=== PATIENT | female | born 1955 | race Caucasian/White ===

== ENCOUNTER 2017-05-26 17:14 | Emergency (ER) | payer BC ==
[~2017-05-26] VITALS: Ht 157.5 cm; Wt 92.7 kg
[~2017-05-26 17:14] MED LIST: ASPIR 8181 M1 PO; BUSPAR7.5 MG PO; CIPRO500 MG PO; FLAGYL500 MG PO; GAS RELIEF125 MG PO; GAS-X125 M1 PO; NEXIUM40 MG PO; NORCO 5/3251 TABLET PO; OMEGA III EPA1000 MG PO; PROBIOTIC1 EAC1 PO; PROMETHAZINE HC25 M1 PO; VITAMIN D1000 UNIT PO; ZINC30 MG PO
[2017-05-26 18:05] LABS: HEMATOCRIT 42.8 % (36.0-46.0); MCH 28.7 PG (29.0-34.0); MCHC 33.2 G/DL (30.0-36.0); MCV 86.5 FL (83-99); MEAN PLAT.VOLUME 10.3 uM^3 (9.5-12.4); PLATELET COUNT 339 K/uL (156-360); RBC DIS.WIDTH-CV 13.5 % (11.8-14.6); RBC DIS.WIDTH-SD 42.4 % (39-53); RED BLOOD COUNT 4.95 M/uL (3.80-5.20); WHITE BLOOD COUNT 10.6 K/uL (4.1-10.2)
[2017-05-26 18:16] LABS: CHLORIDE 102 mEq/L (99-109); POTASSIUM 3.6 mEq/L (3.7-5.4); SODIUM 142 mEq/L (136-147)
[2017-05-26 18:17] LABS: GLUCOSE 96 mg/dL (70-99)
[2017-05-26 18:19] LABS: ANION GAP 15 MEQ/L (2-14)
[2017-05-26 18:21] LABS: GFR ESTIMATE (CALCULATED) > 59 mL/min/
[2017-05-26 18:22] LABS: UREA NITROGEN (BUN) 4 mg/dL (9-23)
[2017-05-26 18:30] LABS: TROP-I INTERPRETATION NEGATIVE; TROPONIN-I < 0.01 ng/mL (0.0-0.30)
[2017-05-26] MEDS ORDERED: K-DUR20 MEQ PO (19:48)
[2017-05-26] MEDS ORDERED: ATIVAN1 MG PO (19:48)
[2017-05-26] MEDS ORDERED: HYDROCHLOROTHIA25 MG PO (19:48)
[2017-05-26 19:53] VITALS: BP 164/104
== END 2017-05-26 20:19 | disposition home or self-care (01) ==
LOC: EME 17:14
PROVIDERS: Emergency Medicine
DX: I10 Essential (primary) hypertension (principal); F41.9 Anxiety disorder, unspecified; F43.9 Reaction to severe stress, unspecified; C14.0 Malignant neoplasm of pharynx, unspecified; K21.9 Gastro-esophageal reflux disease without esophagitis; Z90.49 Acquired absence of other specified parts of digestive tract; F17.200 Nicotine dependence, unspecified, uncomplicated
CPT/HCPCS: 80048; 84484; 85027; 93005; 99281; 99284

== ENCOUNTER 2017-05-29 15:04 | Emergency (ER) | payer BC ==
[~2017-05-29] VITALS: Ht 158.8 cm; Wt 90.4 kg
[~2017-05-29 15:04] MED LIST changes: +ATIVAN1 MG PO; +HYDROCHLOROTHIA25 MG PO; +K-DUR20 MEQ PO
[2017-05-29 16:32] LABS: HEMATOCRIT 44.7 % (36.0-46.0); MCH 28.9 PG (29.0-34.0); MCHC 33.8 G/DL (30.0-36.0); MCV 85.5 FL (83-99); MEAN PLAT.VOLUME 10.8 uM^3 (9.5-12.4); PLATELET COUNT 336 K/uL (156-360); RBC DIS.WIDTH-CV 13.3 % (11.8-14.6); RBC DIS.WIDTH-SD 41.5 % (39-53); RED BLOOD COUNT 5.23 M/uL (3.80-5.20); WHITE BLOOD COUNT 11.5 K/uL (4.1-10.2)
[2017-05-29 17:25] LABS: ADD MIUA? YES; BILIRUBIN NEGATIVE; BLOOD NEGATIVE; COLOR YELLOW ((YELLOW)); GLUCOSE (STRIP) NEGATIVE; KETONES NEGATIVE; LEUKOCYTES NEGATIVE; NITRITE NEGATIVE; PROTEIN (STRIP) NEGATIVE; SPECIFIC GRAVITY 1.009 (1.000-1.030); UROBILINOGEN 0.2 MG/DL (0.2-1.0)
[2017-05-29 17:31] LABS: BACTERIA RARE /HPF; EPITHELIAL CELLS 2+ /HPF; MUCUS TRACE /LPF; RED BLOOD CELLS 0-5 /HPF (0-5); UCUL ADDED? NO; WHITE BLOOD CELLS 0-5 /HPF (0-5)
[2017-05-29 17:39] LABS: CHLORIDE 99 mEq/L (99-109); POTASSIUM 3.5 mEq/L (3.7-5.4); SODIUM 138 mEq/L (136-147)
[2017-05-29 17:40] LABS: GLUCOSE 102 mg/dL (70-99)
[2017-05-29 17:42] LABS: ANION GAP 16 MEQ/L (2-14)
[2017-05-29 17:44] LABS: GFR ESTIMATE (CALCULATED) > 59 mL/min/
[2017-05-29 17:45] LABS: UREA NITROGEN (BUN) 7 mg/dL (9-23)
[2017-05-29] MEDS ORDERED: ATIVAN1 MG PO (18:28)
[2017-05-29 18:57] VITALS: BP 143/97
== END 2017-05-29 19:00 | disposition home or self-care (01) ==
LOC: EME 15:04
PROVIDERS: Emergency Medicine
DX: I10 Essential (primary) hypertension (principal); F41.9 Anxiety disorder, unspecified; R42 Dizziness and giddiness; C14.0 Malignant neoplasm of pharynx, unspecified; I45.10 Unspecified right bundle-branch block; F17.200 Nicotine dependence, unspecified, uncomplicated
CPT/HCPCS: 70450; 71020; 80048; 81003; 85027; 93005; 99281; 99285; J2060

== ENCOUNTER 2017-06-01 13:35 | Emergency (ER) | payer BC ==
[~2017-06-01] VITALS: Ht 157.5 cm; Wt 90.0 kg
[~2017-06-01 13:35] MED LIST changes: -VITAMIN D1000 UNIT PO; +VITAMIN D32000 UNI1 PO
[2017-06-01 14:48] LABS: BASOPHIL COUNT 0.1 K/uL (0-0.1); EOSINOPHIL (%) 0.3 % (0-5); HEMATOCRIT 43.7 % (36.0-46.0); IMMATURE GRANULOCYTE (%) 0.4 % (0.0-0.7); INSTRUMENT ABS NEUTROPHIL CT 7.5 K/uL; LYMPHOCYTE COUNT 2.4 K/uL (1.0-2.8); MCH 28.8 PG (29.0-34.0); MCHC 34.1 G/DL (30.0-36.0); MCV 84.5 FL (83-99); MEAN PLAT.VOLUME 10.3 uM^3 (9.5-12.4); MONOCYTE COUNT 0.9 K/uL (0-0.8); NEUTROPHIL (%) 68.7 % (45-76); NEUTROPHIL COUNT 7.5 K/uL (1.8-6.4); PLATELET COUNT 368 K/uL (156-360); RBC DIS.WIDTH-CV 13.1 % (11.8-14.6); RBC DIS.WIDTH-SD 40.6 % (39-53); RED BLOOD COUNT 5.17 M/uL (3.80-5.20); WHITE BLOOD COUNT 10.9 K/uL (4.1-10.2)
[2017-06-01 14:55] LABS: CHLORIDE 97 mEq/L (99-109); POTASSIUM 3.3 mEq/L (3.7-5.4); SODIUM 136 mEq/L (136-147)
[2017-06-01 14:56] LABS: GLUCOSE 98 mg/dL (70-99)
[2017-06-01 14:58] LABS: ANION GAP 13 MEQ/L (2-14)
[2017-06-01 15:00] LABS: GFR ESTIMATE (CALCULATED) 53 mL/min/
[2017-06-01 15:01] LABS: UREA NITROGEN (BUN) 11 mg/dL (9-23)
[2017-06-01 15:07] LABS: TROP-I INTERPRETATION NEGATIVE; TROPONIN-I < 0.01 ng/mL (0.0-0.30)
[2017-06-01 18:11] VITALS: BP 105/65
[2017-06-13] MEDS ORDERED: ATIVAN1 MG PO (12:59)
[2017-06-13] MEDS ORDERED: ASPIRIN81 M2 PO (13:01)
[2017-06-29] MEDS ORDERED: OXAYDO5 MG PO (08:48)
[2017-06-29] MEDS ORDERED: DEXAMETHASONE4 MG PO (08:51)
[2017-06-29] MEDS ORDERED: EFFEXOR XR75 MG PO (08:51)
[2017-06-29] MEDS ORDERED: ONDANSETRON HCL8 MG PO (08:51)
[2017-07-06] MEDS ORDERED: COLACE100 MG PO (08:40)
[2017-07-06] MEDS ORDERED: COMPAZINE10 MG PO (08:41)
[2017-07-06] MEDS ORDERED: PAIN RELIEVER500 MG PO (08:42)
[2017-07-06] MEDS ORDERED: TRANSDERM-SCOP1 EACH TD (08:42)
[2017-07-27] MEDS ORDERED: POTASSIUM CHLO10 ME3 PO (09:51)
== END 2017-06-01 18:13 | disposition home or self-care (01) ==
LOC: EME 13:35 → RME 13:35
PROVIDERS: Physician Assistant
DX: R55 Syncope and collapse (principal)
CPT/HCPCS: 70450; 80048; 84484; 85025; 93005; 99281; 99285; J1885; J7030

== ENCOUNTER 2017-06-15 11:13 | Day surgery (SDC) | payer BC ==
[~2017-06-15] VITALS: Ht 157.5 cm; Wt 90.7 kg
[~2017-06-15 11:13] MED LIST changes: +ASPIRIN81 M2 PO
[2017-06-15] MEDS ORDERED: GAS-X125 MG PO (11:52)
[2017-06-15 12:00] VITALS: BP 185/89
[2017-06-15] MEDS ORDERED: NORCO 5/3251 TABLET PO (14:34)
[2017-06-15 16:34] VITALS: BP 139/70
[2017-06-15 17:40] VITALS: BP 155/72
== END 2017-06-15 18:05 | disposition home or self-care (01) ==
LOC: SDC 11:13
DX: C09.9 Malignant neoplasm of tonsil, unspecified (principal); I87.8 Other specified disorders of veins; I10 Essential (primary) hypertension; K21.0 Gastro-esophageal reflux disease with esophagitis; Z88.2 Allergy status to sulfonamides; F17.210 Nicotine dependence, cigarettes, uncomplicated; Z82.61 Family history of arthritis; Z80.0 Family history of malignant neoplasm of digestive organs; Z81.8 Family history of other mental and behavioral disorders; Z82.49 Family history of ischemic heart disease and other diseases of the circulatory system; E66.9 Obesity, unspecified; Z68.36 Body mass index [BMI] 36.0-36.9, adult
CPT/HCPCS: 71010; C1751; J0690; J1170; J1885; J2250; J2405; J2765; J3010

== ENCOUNTER 2017-07-22 10:46 | Emergency (ER) | payer BC ==
[~2017-07-22] VITALS: Ht 157.5 cm; Wt 93.8 kg
[~2017-07-22 10:46] MED LIST changes: +COLACE100 MG PO; +COMPAZINE10 MG PO; +DEXAMETHASONE4 MG PO; +EFFEXOR XR75 MG PO; +GAS-X125 MG PO; +ONDANSETRON HCL8 MG PO; +OXAYDO5 MG PO; +PAIN RELIEVER500 MG PO; +TRANSDERM-SCOP1 EACH TD
[2017-07-22 12:01] LABS: EOSINOPHIL (%) 0 % (0-5); HEMATOCRIT 29.5 % (36.0-46.0); IMMATURE GRANULOCYTE (%) 0.8 % (0.0-0.7); IMMATURE GRANULOCYTE COUNT 0.1 K/uL; LYMPHOCYTE COUNT 0.2 K/uL (1.0-2.8); MCH 29.4 PG (29.0-34.0); MCHC 34.2 G/DL (30.0-36.0); MEAN PLAT.VOLUME 10.2 uM^3 (9.5-12.4); MONOCYTE (%) 4.1 % (3-12); MONOCYTE COUNT 0.3 K/uL (0-0.8); NEUTROPHIL (%) 91.4 % (45-76); PLATELET COUNT 182 K/uL (156-360); RBC DIS.WIDTH-CV 13.2 % (11.8-14.6); RBC DIS.WIDTH-SD 40.3 % (39-53); RED BLOOD COUNT 3.43 M/uL (3.80-5.20); WHITE BLOOD COUNT 6.6 K/uL (4.1-10.2)
[2017-07-22 12:23] LABS: CHLORIDE 99 mEq/L (99-109); POTASSIUM 4.3 mEq/L (3.7-5.4); SODIUM 135 mEq/L (136-147)
[2017-07-22 12:25] LABS: GLUCOSE 137 mg/dL (70-99)
[2017-07-22 12:27] LABS: ANION GAP 11 MEQ/L (2-14)
[2017-07-22 12:29] LABS: GFR ESTIMATE (CALCULATED) > 59 mL/min/; INTER. NORMALIZED RATIO 1.2; PROTHROMBIN TIME 13.5 SEC (10.2-12.9)
[2017-07-22 12:30] LABS: UREA NITROGEN (BUN) 15 mg/dL (9-23)
[2017-07-22 12:31] LABS: PTT 28.3 SEC (25-37)
[2017-07-22 14:38] VITALS: BP 153/80
== END 2017-07-22 14:39 | disposition home or self-care (01) ==
LOC: EME 10:46
PROVIDERS: Nurse Practitioner Family
DX: R60.0 Localized edema (principal); C09.9 Malignant neoplasm of tonsil, unspecified; T45.1X5A Adverse effect of antineoplastic and immunosuppressive drugs, initial encounter; D64.81 Anemia due to antineoplastic chemotherapy; I10 Essential (primary) hypertension; K21.9 Gastro-esophageal reflux disease without esophagitis; F32.9 Major depressive disorder, single episode, unspecified; F41.9 Anxiety disorder, unspecified; Z93.1 Gastrostomy status; F17.200 Nicotine dependence, unspecified, uncomplicated
CPT/HCPCS: 80048; 85025; 85610; 85730; 93005; 93971; 99281; 99283

== ENCOUNTER 2017-08-02 16:10 | Observation (INO) | payer BC ==
[~2017-08-02] VITALS: Ht 157.5 cm; Wt 91.5 kg
[~2017-08-02 16:10] MED LIST changes: -ONDANSETRON HCL8 MG PO; +ONDANSETRON ODT4 MG PO; +POTASSIUM CHLO10 ME3 PO
[2017-08-02 17:22] LABS: HEMATOCRIT 24.1 % (36.0-46.0); MCH 30.3 PG (29.0-34.0); MCHC 36.1 G/DL (30.0-36.0); RBC DIS.WIDTH-CV 13.3 % (11.8-14.6); RED BLOOD COUNT 2.87 M/uL (3.80-5.20); WHITE BLOOD COUNT 2.4 K/uL (4.1-10.2)
[2017-08-02 17:29] LABS: CHLORIDE 91 mEq/L (99-109); SODIUM 130 mEq/L (136-147)
[2017-08-02 17:32] LABS: GLUCOSE 102 mg/dL (70-99)
[2017-08-02 17:33] LABS: ANION GAP 13 MEQ/L (2-14)
[2017-08-02 17:34] LABS: TOTAL BILIRUBIN 0.7 mg/dL (0.0-1.0)
[2017-08-02 17:35] LABS: ALKALINE PHOSPHATASE 51 IU/L (3-129)
[2017-08-02 17:36] LABS: GFR ESTIMATE (CALCULATED) > 59 mL/min/
[2017-08-02 17:37] LABS: DIRECT BILIRUBIN 0.4 mg/dL (0.0-0.3); UREA NITROGEN (BUN) 8 mg/dL (9-23)
[2017-08-02 17:39] LABS: LIPASE 17 U/L (1.0-51.0)
[2017-08-02 18:19] LABS: EOSINOPHIL (%) 0.4 % (0-5); HEMATOLOGY COMMENT 1 SN; IMMATURE GRANULOCYTE (%) 0.4 % (0.0-0.7); INSTRUMENT ABS NEUTROPHIL CT 1.7 K/uL; LYMPHOCYTE COUNT 0.3 K/uL (1.0-2.8); MEAN PLAT.VOLUME 8.9 uM^3 (9.5-12.4); MONOCYTE (%) 11.9 % (3-12); MONOCYTE COUNT 0.3 K/uL (0-0.8); NEUTROPHIL (%) 73.7 % (45-76); NEUTROPHIL COUNT 1.7 K/uL (1.8-6.4); PLAT.SUFFICIENCY DECREASED; PLATELET COUNT 107 K/uL (156-360)
[2017-08-02] MEDS ORDERED: MAG-OXIDE400 MG PO (23:57)
[2017-08-03 00:15] VITALS: BP 173/87
[2017-08-03 05:28] LABS: HEMATOCRIT 25.3 % (36.0-46.0); MCH 30.5 PG (29.0-34.0); MCHC 35.2 G/DL (30.0-36.0); MCV 86.6 FL (83-99); MEAN PLAT.VOLUME 9.4 uM^3 (9.5-12.4); PLATELET COUNT 116 K/uL (156-360); RBC DIS.WIDTH-CV 14.1 % (11.8-14.6); RBC DIS.WIDTH-SD 42.4 % (39-53); RED BLOOD COUNT 2.92 M/uL (3.80-5.20); WHITE BLOOD COUNT 2.6 K/uL (4.1-10.2)
[2017-08-03 08:58] VITALS: BP 149/74
[2017-08-03 09:33] LABS: ALKALINE PHOSPHATASE 50 IU/L (3-129); ANION GAP 8 MEQ/L (2-14); GFR ESTIMATE (CALCULATED) > 59 mL/min/; GLUCOSE 98 mg/dL (70-99); SAMPLE HEMOLYSIS CHECK 0; SAMPLE ICTERIC CHECK 0; SAMPLE LIPEMIA CHECK 0; SODIUM 134 MEQ/L (136-147); UREA NITROGEN (BUN) 7 mg/dL (9-23)
[2017-08-03 09:36] LABS: CHLORIDE 99 MEQ/L (99-109); MAGNESIUM 1.4 mg/dl (1.3-2.7); POTASSIUM 3.9 MEQ/L (3.7-5.4); TOTAL BILIRUBIN 0.5 MG/DL (0.0-1.0)
[2017-08-03 12:05] VITALS: BP 166/86
[2017-08-03 16:00] VITALS: BP 174/89
== END 2017-08-03 18:20 | disposition home or self-care (01) ==
LOC: EME 16:10 → EDOF 22:33 → 5WEST 22:33 → ENRESERV 22:51 → EDOF 08-03 00:06 → 5WEST 08-03 00:06
PROVIDERS: Emergency Medicine; Hospitalist; Physician Assistant Medical
DX: R11.2 Nausea with vomiting, unspecified (principal); E87.6 Hypokalemia; E83.42 Hypomagnesemia; E87.1 Hypo-osmolality and hyponatremia; E87.8 Other disorders of electrolyte and fluid balance, not elsewhere classified; C09.9 Malignant neoplasm of tonsil, unspecified; R19.7 Diarrhea, unspecified; R10.9 Unspecified abdominal pain; R63.4 Abnormal weight loss; Z92.21 Personal history of antineoplastic chemotherapy; Z92.3 Personal history of irradiation; I10 Essential (primary) hypertension; I45.10 Unspecified right bundle-branch block; D64.9 Anemia, unspecified; K21.9 Gastro-esophageal reflux disease without esophagitis; F41.9 Anxiety disorder, unspecified; Z86.19 Personal history of other infectious and parasitic diseases; M19.90 Unspecified osteoarthritis, unspecified site; G89.29 Other chronic pain; M54.9 Dorsalgia, unspecified; Z86.010 Personal history of colon polyps; Z93.1 Gastrostomy status; Z90.49 Acquired absence of other specified parts of digestive tract; Z90.710 Acquired absence of both cervix and uterus; F17.200 Nicotine dependence, unspecified, uncomplicated; Z80.0 Family history of malignant neoplasm of digestive organs; Z82.61 Family history of arthritis; Z82.49 Family history of ischemic heart disease and other diseases of the circulatory system; Z82.0 Family history of epilepsy and other diseases of the nervous system; Z66 Do not resuscitate
CPT/HCPCS: 71010; 71275; 80048; 80053; 80076; 83690; 83735; 84100; 85025 91; 85027; 87493; 93005; 99281; 99285; C9113; G0378; J2060; J2405; J3475; J3480; J7030

== ENCOUNTER 2017-08-06 07:21 | Inpatient (IN) | payer BC ==
[~2017-08-06] VITALS: Ht 158.8 cm; Wt 89.4 kg
[~2017-08-06 07:21] MED LIST changes: +MAG-OXIDE400 MG PO
[2017-08-06 08:24] LABS: INTER. NORMALIZED RATIO 1.3; PROTHROMBIN TIME 14.6 SEC (10.2-12.9)
[2017-08-06 08:27] LABS: MCHC 35.2 G/DL (30.0-36.0); MCV 85.2 FL (83-99); MEAN PLAT.VOLUME 8.9 uM^3 (9.5-12.4); PLATELET COUNT 120 K/uL (156-360); RBC DIS.WIDTH-CV 13.5 % (11.8-14.6); RBC DIS.WIDTH-SD 40.8 % (39-53)
[2017-08-06 08:29] LABS: CHLORIDE 92 mEq/L (99-109); SODIUM 133 mEq/L (136-147)
[2017-08-06 08:31] LABS: GLUCOSE 115 mg/dL (70-99); MAGNESIUM 0.8 mg/dL (1.3-2.7)
[2017-08-06 08:32] LABS: ANION GAP 9 MEQ/L (2-14)
[2017-08-06 08:35] LABS: GFR ESTIMATE (CALCULATED) > 59 mL/min/
[2017-08-06 08:36] LABS: UREA NITROGEN (BUN) 8 mg/dL (9-23)
[2017-08-06 08:37] LABS: WHITE BLOOD COUNT 1.6 K/uL (4.1-10.2)
[2017-08-06 08:41] LABS: TROP-I INTERPRETATION NEGATIVE; TROPONIN-I 0.02 ng/mL (0.0-0.30)
[2017-08-06 09:32] LABS: EOSINOPHIL (%) 0.6 % (0-5); INSTRUMENT ABS NEUTROPHIL CT 1.1 K/uL; LYMPHOCYTE COUNT 0.3 K/uL (1.0-2.8); MONOCYTE COUNT 0.3 K/uL (0-0.8); NEUTROPHIL (%) 66.8 % (45-76); NEUTROPHIL COUNT 1.1 K/uL (1.8-6.4)
[2017-08-06 09:49] LABS: PTT 240.8 SEC (25-37)
[2017-08-06] MEDS ORDERED: MAGNESIUM400 M1 PO ×2 (12:38)
[2017-08-06] MEDS ORDERED: COMPAZINE10 MG PO (12:39)
[2017-08-06] MEDS ORDERED: LIDOCAINE-PRIL1 EACH TP (12:40)
[2017-08-06] MEDS ORDERED: MAGIC MOUTHWASH PO (12:40)
[2017-08-06] MEDS ORDERED: CORRECTOL5 M1 PO (12:41)
[2017-08-06 14:25] VITALS: BP 180/84
[2017-08-06 18:23] VITALS: BP 142/64; BP 145/65
[2017-08-06 20:34] VITALS: BP 144/75
[2017-08-07] VITALS (7 sets, daily range): BP systolic 141–178; BP diastolic 63–96
[2017-08-07 05:45] LABS: ANION GAP 8 MEQ/L (2-14); CHLORIDE 90 MEQ/L (99-109); GFR ESTIMATE (CALCULATED) > 59 mL/min/; GLUCOSE 105 mg/dL (70-99); MAGNESIUM 1.1 mg/dl (1.3-2.7); POTASSIUM 3.6 MEQ/L (3.7-5.4); SAMPLE HEMOLYSIS CHECK 0; SAMPLE ICTERIC CHECK 0; SAMPLE LIPEMIA CHECK 0; SODIUM 131 MEQ/L (136-147); UREA NITROGEN (BUN) 7 mg/dL (9-23)
[2017-08-07 08:28] LABS: HEMATOCRIT 23.6 % (36.0-46.0); MCH 30.2 PG (29.0-34.0); MCHC 35.2 G/DL (30.0-36.0); MCV 85.8 FL (83-99); MEAN PLAT.VOLUME 9.1 uM^3 (9.5-12.4); PLATELET COUNT 134 K/uL (156-360); RBC DIS.WIDTH-CV 13.9 % (11.8-14.6); RBC DIS.WIDTH-SD 41.3 % (39-53); RED BLOOD COUNT 2.75 M/uL (3.80-5.20)
[2017-08-07 08:29] LABS: WHITE BLOOD COUNT 1.4 K/uL (4.1-10.2)
[2017-08-07 08:57] LABS: ABS NEUTROPHIL COUNT 0.9; ATYPICAL LYMPHOCYTE 2.7 %; BAND NEUTROPHILS 14.6 % (0-8.0); BASOPHILS 0.9 %; EOSINOPHIL ABS CT 0; INSTRUMENT ABS NEUTROPHIL CT 0.8 K/uL; PLAT.SUFFICIENCY DECREASED
[2017-08-08 03:47] VITALS: BP 142/87
[2017-08-08 05:19] LABS: HEMATOCRIT 25.9 % (36.0-46.0); MCH 29.5 PG (29.0-34.0); MCHC 34.4 G/DL (30.0-36.0); MCV 85.8 FL (83-99); MEAN PLAT.VOLUME 8.9 uM^3 (9.5-12.4); PLATELET COUNT 148 K/uL (156-360); RBC DIS.WIDTH-CV 13.9 % (11.8-14.6); RED BLOOD COUNT 3.02 M/uL (3.80-5.20)
[2017-08-08 05:41] LABS: ABS NEUTROPHIL COUNT 0.8; ANISOCYTOSIS 1+; ATYPICAL LYMPHOCYTE 1.1 %; BAND NEUTROPHILS 19.3 % (0-8.0); EOSINOPHIL ABS CT 0; HYPOCHROMASIA 1+; INSTRUMENT ABS NEUTROPHIL CT 0.8 K/uL; METAMYELOCYTES 1.1 %; PLAT.SUFFICIENCY ADEQUATE; SEG.NEUTROPHILS 59.1 % (46.0-76.0)
[2017-08-08 06:23] LABS: ANION GAP 7 MEQ/L (2-14); CHLORIDE 88 MEQ/L (99-109); GFR ESTIMATE (CALCULATED) > 59 mL/min/; MAGNESIUM 1.2 mg/dl (1.3-2.7); SAMPLE HEMOLYSIS CHECK 0; SAMPLE ICTERIC CHECK 0; SAMPLE LIPEMIA CHECK 0; SODIUM 127 MEQ/L (136-147); UREA NITROGEN (BUN) 12 mg/dL (9-23)
[2017-08-08 06:25] LABS: GLUCOSE 200 mg/dL (70-99); POTASSIUM 4.4 MEQ/L (3.7-5.4)
[2017-08-08 09:09] VITALS: BP 170/89
[2017-08-08 11:21] VITALS: BP 131/69; BP 147/78
[2017-08-08 15:49] VITALS: BP 166/81
[2017-08-08 19:49] VITALS: BP 145/96
[2017-08-09 00:10] VITALS: BP 134/69
[2017-08-09 04:24] VITALS: BP 147/95
[2017-08-09 06:04] LABS: HEMATOCRIT 24.1 % (36.0-46.0); MCH 30.9 PG (29.0-34.0); MCHC 35.7 G/DL (30.0-36.0); MCV 86.7 FL (83-99); MEAN PLAT.VOLUME 9.4 uM^3 (9.5-12.4); PLATELET COUNT 167 K/uL (156-360); RBC DIS.WIDTH-CV 14.2 % (11.8-14.6); RBC DIS.WIDTH-SD 42.8 % (39-53); RED BLOOD COUNT 2.78 M/uL (3.80-5.20)
[2017-08-09 06:06] LABS: WHITE BLOOD COUNT 1.5 K/uL (4.1-10.2)
[2017-08-09 07:02] LABS: ABS NEUTROPHIL COUNT 1.2; ANISOCYTOSIS 2+; BAND NEUTROPHILS 18.6 % (0-8.0); EOSINOPHIL ABS CT 0; INSTRUMENT ABS NEUTROPHIL CT 1.1 K/uL; MACROCYTES 1+; MICROCYTOSIS 1+; SEG.NEUTROPHILS 59.3 % (46.0-76.0)
[2017-08-09 08:16] LABS: ANION GAP 6 MEQ/L (2-14); CHLORIDE 94 MEQ/L (99-109); GFR ESTIMATE (CALCULATED) > 59 mL/min/; GLUCOSE 155 mg/dL (70-99); POTASSIUM 5.2 MEQ/L (3.7-5.4); SAMPLE HEMOLYSIS CHECK 0; SAMPLE ICTERIC CHECK 0; SAMPLE LIPEMIA CHECK 0; SODIUM 131 MEQ/L (136-147); UREA NITROGEN (BUN) 15 mg/dL (9-23)
[2017-08-09 08:17] LABS: MAGNESIUM 1.4 mg/dl (1.3-2.7)
[2017-08-09 08:30] VITALS: BP 171/83
[2017-08-09 12:05] VITALS: BP 174/86
[2017-08-09 19:35] VITALS: BP 186/86
[2017-08-10] VITALS (7 sets, daily range): BP systolic 137–177; BP diastolic 64–80
[2017-08-10 07:25] LABS: HEMATOCRIT 25.8 % (36.0-46.0); MCH 30.6 PG (29.0-34.0); MCHC 34.9 G/DL (30.0-36.0); MCV 87.8 FL (83-99); PLATELET COUNT 178 K/uL (156-360); RBC DIS.WIDTH-CV 14.7 % (11.8-14.6); RBC DIS.WIDTH-SD 44.6 % (39-53); RED BLOOD COUNT 2.94 M/uL (3.80-5.20)
[2017-08-10 07:39] LABS: ANION GAP 9 MEQ/L (2-14); CHLORIDE 95 MEQ/L (99-109); GFR ESTIMATE (CALCULATED) > 59 mL/min/; GLUCOSE 148 mg/dL (70-99); POTASSIUM 5.1 MEQ/L (3.7-5.4); SAMPLE HEMOLYSIS CHECK 0; SAMPLE ICTERIC CHECK 0; SAMPLE LIPEMIA CHECK 0; SODIUM 133 MEQ/L (136-147); UREA NITROGEN (BUN) 21 mg/dL (9-23)
[2017-08-10 07:42] LABS: MAGNESIUM 1.1 mg/dl (1.3-2.7)
[2017-08-10 07:43] LABS: EOSINOPHIL (%) 0 % (0-5); INSTRUMENT ABS NEUTROPHIL CT 1.1 K/uL; LYMPHOCYTE COUNT 0.3 K/uL (1.0-2.8); MONOCYTE (%) 15.5 % (3-12); MONOCYTE COUNT 0.2 K/uL (0-0.8); NEUTROPHIL (%) 67.7 % (45-76); NEUTROPHIL COUNT 1.1 K/uL (1.8-6.4); WHITE BLOOD COUNT 1.6 K/uL (4.1-10.2)
[2017-08-11 04:36] VITALS: BP 146/69
[2017-08-11 05:26] LABS: HEMATOCRIT 25.2 % (36.0-46.0); MCHC 34.9 G/DL (30.0-36.0); MCV 88.7 FL (83-99); MEAN PLAT.VOLUME 9.3 uM^3 (9.5-12.4); PLATELET COUNT 202 K/uL (156-360); RBC DIS.WIDTH-CV 14.7 % (11.8-14.6); RBC DIS.WIDTH-SD 45.3 % (39-53); RED BLOOD COUNT 2.84 M/uL (3.80-5.20)
[2017-08-11 05:44] LABS: WHITE BLOOD COUNT 1.3 K/uL (4.1-10.2)
[2017-08-11 05:50] LABS: ANION GAP 7 MEQ/L (2-14); CHLORIDE 94 MEQ/L (99-109); GFR ESTIMATE (CALCULATED) > 59 mL/min/; GLUCOSE 188 mg/dL (70-99); POTASSIUM 4.8 MEQ/L (3.7-5.4); SAMPLE HEMOLYSIS CHECK 0; SAMPLE ICTERIC CHECK 0; SAMPLE LIPEMIA CHECK 0; SODIUM 134 MEQ/L (136-147); UREA NITROGEN (BUN) 25 mg/dL (9-23)
[2017-08-11 05:52] LABS: MAGNESIUM 1.7 mg/dl (1.3-2.7)
[2017-08-11 05:57] LABS: EOSINOPHIL (%) 0 % (0-5); LYMPHOCYTE COUNT 0.2 K/uL (1.0-2.8); MONOCYTE (%) 12.4 % (3-12); MONOCYTE COUNT 0.2 K/uL (0-0.8)
[2017-08-11 08:00] VITALS: BP 144/85
[2017-08-11 16:06] VITALS: BP 147/70
[2017-08-11 18:40] VITALS: BP 183/94
[2017-08-11 20:00] VITALS: BP 145/78
[2017-08-11 23:48] VITALS: BP 117/63
[2017-08-12 04:00] VITALS: BP 130/78
[2017-08-12 07:15] LABS: HEMATOCRIT 24.4 % (36.0-46.0); MCH 31.2 PG (29.0-34.0); MCHC 35.2 G/DL (30.0-36.0); MCV 88.4 FL (83-99); MEAN PLAT.VOLUME 9.2 uM^3 (9.5-12.4); PLATELET COUNT 198 K/uL (156-360); RBC DIS.WIDTH-CV 14.9 % (11.8-14.6); RBC DIS.WIDTH-SD 45.7 % (39-53); RED BLOOD COUNT 2.76 M/uL (3.80-5.20); WHITE BLOOD COUNT 1.4 K/uL (4.1-10.2)
[2017-08-12 07:46] LABS: ANION GAP 7 MEQ/L (2-14); CHLORIDE 103 MEQ/L (99-109); GFR ESTIMATE (CALCULATED) > 59 mL/min/; GLUCOSE 133 mg/dL (70-99); SAMPLE HEMOLYSIS CHECK 0; SAMPLE ICTERIC CHECK 0; SAMPLE LIPEMIA CHECK 0; SODIUM 137 MEQ/L (136-147); UREA NITROGEN (BUN) 19 mg/dL (9-23)
[2017-08-12 07:47] LABS: MAGNESIUM 0.9 mg/dl (1.3-2.7); POTASSIUM 3.2 MEQ/L (3.7-5.4)
[2017-08-12 07:52] VITALS: BP 129/56
[2017-08-12 15:50] LABS: MAGNESIUM 2.1 mg/dl (1.3-2.7); POTASSIUM 5.8 MEQ/L (3.7-5.4)
[2017-08-12 17:44] VITALS: BP 144/79
[2017-08-12 22:01] VITALS: BP 132/63
[2017-08-13 06:39] LABS: HEMATOCRIT 26.9 % (36.0-46.0); MCH 29.7 PG (29.0-34.0); MCHC 33.5 G/DL (30.0-36.0); MCV 88.8 FL (83-99); MEAN PLAT.VOLUME 8.6 uM^3 (9.5-12.4); PLATELET COUNT 271 K/uL (156-360); RBC DIS.WIDTH-CV 15.2 % (11.8-14.6); RBC DIS.WIDTH-SD 46.7 % (39-53); RED BLOOD COUNT 3.03 M/uL (3.80-5.20); WHITE BLOOD COUNT 1.7 K/uL (4.1-10.2)
[2017-08-13 06:59] LABS: ANION GAP 6 MEQ/L (2-14); CHLORIDE 94 MEQ/L (99-109); GFR ESTIMATE (CALCULATED) > 59 mL/min/; GLUCOSE 140 mg/dL (70-99); SAMPLE HEMOLYSIS CHECK 0; SAMPLE ICTERIC CHECK 0; SAMPLE LIPEMIA CHECK 0; SODIUM 133 MEQ/L (136-147); UREA NITROGEN (BUN) 23 mg/dL (9-23)
[2017-08-13 07:08] LABS: MAGNESIUM 1.3 mg/dl (1.3-2.7); POTASSIUM 4.6 MEQ/L (3.7-5.4)
[2017-08-13 07:15] VITALS: BP 163/74
[2017-08-13 15:59] VITALS: BP 136/70
[2017-08-14] VITALS: BP 125/58
[2017-08-14 06:20] LABS: HEMATOCRIT 26.4 % (36.0-46.0); MCH 29.9 PG (29.0-34.0); MCHC 33.7 G/DL (30.0-36.0); MCV 88.6 FL (83-99); MEAN PLAT.VOLUME 8.7 uM^3 (9.5-12.4); PLATELET COUNT 295 K/uL (156-360); RBC DIS.WIDTH-CV 15.4 % (11.8-14.6); RED BLOOD COUNT 2.98 M/uL (3.80-5.20); WHITE BLOOD COUNT 2.2 K/uL (4.1-10.2)
[2017-08-14 06:47] LABS: ANION GAP 7 MEQ/L (2-14); CHLORIDE 92 MEQ/L (99-109); GFR ESTIMATE (CALCULATED) > 59 mL/min/; GLUCOSE 169 mg/dL (70-99); POTASSIUM 4.3 MEQ/L (3.7-5.4); SAMPLE HEMOLYSIS CHECK 0; SAMPLE ICTERIC CHECK 0; SAMPLE LIPEMIA CHECK 0; SODIUM 132 MEQ/L (136-147); UREA NITROGEN (BUN) 21 mg/dL (9-23)
[2017-08-14 06:48] LABS: MAGNESIUM 1.5 mg/dl (1.3-2.7)
[2017-08-14 08:16] VITALS: BP 153/66
[2017-08-14] MEDS ORDERED: ADVAIR HFA120 INHALA IH (12:16)
[2017-08-14] MEDS ORDERED: PREDNISONE10 MG PO (12:19)
[2017-08-14] MEDS ORDERED: AMLODIPINE BES2.5 MG PO (12:19)
== END 2017-08-14 13:51 | disposition home or self-care (01) | DRG 191 ==
LOC: EME → EDBD 07:21 → 4EAST 12:32 → EDOF 12:32 → ENRESERV 12:38 → 4EAST 13:54 → ENRESERV 08-11 11:27 → 5SOUTH 08-11 18:22
PROVIDERS: Emergency Medicine; Hospitalist; Internal Medicine; Internal Medicine Nephrology
PROC: D70 Radiation Therapy, Lymphatic and Hematologic System, Beam Radiation (ICD-10-PCS; principal; 2017-08-07)
PROC: D70 Radiation Therapy, Lymphatic and Hematologic System, Beam Radiation (ICD-10-PCS; 2017-08-13)
DX: J44.1 Chronic obstructive pulmonary disease with (acute) exacerbation (principal); E83.42 Hypomagnesemia; E87.1 Hypo-osmolality and hyponatremia; D61.818 Other pancytopenia; C09.9 Malignant neoplasm of tonsil, unspecified; E83.39 Other disorders of phosphorus metabolism; I77.810 Thoracic aortic ectasia; E87.6 Hypokalemia; T45.1X5A Adverse effect of antineoplastic and immunosuppressive drugs, initial encounter; E46 Unspecified protein-calorie malnutrition; K21.9 Gastro-esophageal reflux disease without esophagitis; F32.9 Major depressive disorder, single episode, unspecified; F17.210 Nicotine dependence, cigarettes, uncomplicated; E86.0 Dehydration; B35.9 Dermatophytosis, unspecified; F41.9 Anxiety disorder, unspecified; K14.6 Glossodynia; I10 Essential (primary) hypertension; Z68.35 Body mass index [BMI] 35.0-35.9, adult; Z93.1 Gastrostomy status; Z90.49 Acquired absence of other specified parts of digestive tract; Z86.010 Personal history of colon polyps; Z90.710 Acquired absence of both cervix and uterus; Z85.818 Personal history of malignant neoplasm of other sites of lip, oral cavity, and pharynx; Z80.0 Family history of malignant neoplasm of digestive organs; Z82.61 Family history of arthritis
CPT/HCPCS: 71010; 71275; 77336; 77385; 80048; 81003; 82533 91; 83735; 83930; 83935; 84100; 84132 91; 84300; 84443; 84484; 85025; 85027; 85384; 85610; 85730; 93005; 94640; 94640 76; 94760; 94799; 99202; 99281; 99285; G0378; J2405; J2920; J3475; J3480; J7030; J7512; J8540

== ENCOUNTER 2017-12-02 22:00 | Inpatient (IN) | payer BC ==
[~2017-12-02] VITALS: Ht 170.2 cm; Wt 73.9 kg
[~2017-12-02 22:00] MED LIST changes: +ADVAIR HFA120 INHALA IH; +AMILORIDE HCL5 MG PO; +AMLODIPINE BES2.5 MG PO; +CORRECTOL5 M1 PO; +LIDOCAINE-PRIL1 EACH TP; +MAGIC MOUTHWASH PO; +MAGNESIUM400 M1 PO; +PREDNISONE10 MG PO
[2017-12-02 23:19] LABS: BASOPHIL (%) 0.1 % (0-1); EOSINOPHIL (%) 0 % (0-5); HEMATOCRIT 31.7 % (36.0-46.0); HEMOGLOBIN 11.8 G/DL (11.9-15.5); IMMATURE GRANULOCYTE (%) 0.5 % (0.0-0.7); LYMPHOCYTE (%) 1.5 % (15-42); LYMPHOCYTE COUNT 0.3 K/uL (1.0-2.8); MCH 30.4 PG (29.0-34.0); MCHC 37.2 G/DL (30.0-36.0); MCV 81.7 FL (83-99); MONOCYTE (%) 3.4 % (3-12); MONOCYTE COUNT 0.6 K/uL (0-0.8); NEUTROPHIL (%) 94.5 % (45-76); NEUTROPHIL COUNT 16.2 K/uL (1.8-6.4); PLATELET COUNT 258 K/uL (156-360); RBC DIS.WIDTH-CV 12.1 % (11.8-14.6); RBC DIS.WIDTH-SD 35.9 % (39-53); RED BLOOD COUNT 3.88 M/uL (3.80-5.20); WHITE BLOOD COUNT 17.1 K/uL (4.1-10.2)
[2017-12-02 23:25] LABS: APPEARANCE CLOUDY ((CLEAR)); BILIRUBIN NEGATIVE; BLOOD MODERATE; COLOR YELLOW ((YELLOW)); GLUCOSE (STRIP) 150; KETONES 20; LEUKOCYTES SMALL; NITRITE NEGATIVE; PROTEIN (STRIP) 100; SPECIFIC GRAVITY 1.014 (1.000-1.030); UROBILINOGEN 0.2 MG/DL (0.2-1.0)
[2017-12-02 23:27] LABS: INTER. NORMALIZED RATIO 1.2; PTT 27.6 SEC (25-37)
[2017-12-02 23:30] LABS: ALBUMIN 4.3 g/dL (3.2-4.8); CHLORIDE 89 mEq/L (99-109); POTASSIUM 4.6 mEq/L (3.7-5.4); SODIUM 124 mEq/L (136-147)
[2017-12-02 23:32] LABS: GLUCOSE 166 mg/dL (70-99)
[2017-12-02 23:32] LABS: BACTERIA RARE /HPF; EPITHELIAL CELLS 1+ /HPF; HYALINE CASTS 0-5 /LPF; MUCUS TRACE /LPF; UCUL ADDED? YES; WHITE BLOOD CELLS 20-30 /HPF (0-5)
[2017-12-02 23:33] LABS: TOTAL PROTEIN 7.4 g/dL (6.4-8.3)
[2017-12-02 23:34] LABS: TOTAL BILIRUBIN 0.8 mg/dL (0.0-1.0)
[2017-12-02 23:36] LABS: ALKALINE PHOSPHATASE 86 IU/L (3-129)
[2017-12-02 23:39] LABS: TROP-I INTERPRETATION NEGATIVE; TROPONIN-I 0.06 ng/mL (0.0-0.30)
[2017-12-02 23:40] LABS: CREATINE KINASE 79 IU/L (1-294); TOTAL CK 79 IU/L (1-294)
[2017-12-02 23:45] LABS: CK-MB 2.5 ng/mL (0.0-4.9); CKMB RELATIVE INDEX 3.2 (0.0-3.9)
[2017-12-02 23:55] LABS: MAGNESIUM 1.4 mg/dL (1.3-2.7)
[2017-12-03] LABS: GFR ESTIMATE (CALCULATED) > 59 mL/min/; PHOSPHORUS 3.7 mg/dL (2.5-4.9)
[2017-12-03 00:01] LABS: UREA NITROGEN (BUN) 16 mg/dL (9-23)
[2017-12-03 00:02] LABS: ALT (GPT) 24 IU/L (3-49); AST (GOT) 22 IU/L (2-34); DIRECT BILIRUBIN 0.4 mg/dL (0.0-0.3)
[2017-12-03 00:03] LABS: LIPASE 23 U/L (1.0-51.0)
[2017-12-03 00:40] LABS: BASE EXCESS -0.8 mEq/L (-3 to +3); BICARBONATE 23.4 mEq/L (22-26); CARBOXY HGB 1.5 % (0-5); COMMENTS - BLOOD GASES C+A+; DEVICE VENTILATOR; FI02 100 %; MECHANICAL RATE 16 resp/min; METHEMOGLOBIN 1.2 % (0-1.5); MODE AC; PCO2 36 mm Hg (35-45); PEEP 5 CM/H20; PO2 309 mm Hg (80-100); SITE RR; TIDAL VOLUME 500 ML; TOTAL RESP RATE 16 resp/min; pH 7.42 (7.35-7.45)
[2017-12-03] MEDS ORDERED: LORAZEPAM1 MG PO (02:03)
[2017-12-03] MEDS ORDERED: ONDANSETRON ODT4 MG PO (02:04)
[2017-12-03] MEDS ORDERED: OXAYDO5 MG PO (02:04)
[2017-12-03 03:10] VITALS: BP 212/106
[2017-12-03 03:15] VITALS: BP 231/109
[2017-12-03 05:25] LABS: CHLORIDE 93 mEq/L (99-109); POTASSIUM 4.5 mEq/L (3.7-5.4); SODIUM 123 mEq/L (136-147)
[2017-12-03 05:26] LABS: GLUCOSE 131 mg/dL (70-99)
[2017-12-03 05:30] LABS: CREATININE 0.9 mg/dL (0.6-1.3); GFR ESTIMATE (CALCULATED) > 59 mL/min/
[2017-12-03 05:31] LABS: UREA NITROGEN (BUN) 16 mg/dL (9-23)
[2017-12-03 08:00] VITALS: BP 167/69
[2017-12-03 16:47] LABS: CHLORIDE 93 MEQ/L (99-109); CREATININE 1.1 MG/DL (0.6-1.3); GFR ESTIMATE (CALCULATED) 53 mL/min/; GLUCOSE 133 mg/dL (70-99); SODIUM 124 MEQ/L (136-147); UREA NITROGEN (BUN) 21 mg/dL (9-23)
[2017-12-03 20:00] VITALS: BP 156/77
[2017-12-03 23:55] LABS: CHLORIDE 97 mEq/L (99-109); POTASSIUM 4.1 mEq/L (3.7-5.4); SODIUM 125 mEq/L (136-147)
[2017-12-03 23:56] LABS: GLUCOSE 125 mg/dL (70-99)
[2017-12-04] VITALS (12 sets, daily range): BP systolic 126–190; BP diastolic 70–90
[2017-12-04] LABS: CREATININE 1.3 mg/dL (0.6-1.3); GFR ESTIMATE (CALCULATED) 44 mL/min/
[2017-12-04 00:01] LABS: UREA NITROGEN (BUN) 28 mg/dL (9-23)
[2017-12-04 00:10] LABS: MAGNESIUM 1.3 mg/dL (1.3-2.7)
[2017-12-04 00:15] LABS: PHOSPHORUS 4.4 mg/dL (2.5-4.9)
[2017-12-04 05:24] LABS: UR CREATININE CONCENTRATION 132.5 MG/DL
[2017-12-04 06:11] LABS: CHLORIDE 95 MEQ/L (99-109); CREATININE 1.2 MG/DL (0.6-1.3); GFR ESTIMATE (CALCULATED) 48 mL/min/; GLUCOSE 136 mg/dL (70-99); POTASSIUM 4.1 MEQ/L (3.7-5.4); SODIUM 129 MEQ/L (136-147); UREA NITROGEN (BUN) 30 mg/dL (9-23)
[2017-12-04 09:06] LABS: THYROTROPIN (TSH) 0.91 MIU/L (0.4-5.5)
[2017-12-04 12:29] LABS: CHLORIDE 98 MEQ/L (99-109); CREATININE 1.2 MG/DL (0.6-1.3); GFR ESTIMATE (CALCULATED) 48 mL/min/; GLUCOSE 123 mg/dL (70-99); MAGNESIUM 1.4 mg/dl (1.3-2.7); POTASSIUM 3.9 MEQ/L (3.7-5.4); SODIUM 125 MEQ/L (136-147); UREA NITROGEN (BUN) 32 mg/dL (9-23)
[2017-12-04 18:38] LABS: CHLORIDE 100 MEQ/L (99-109); CREATININE 1.1 MG/DL (0.6-1.3); GFR ESTIMATE (CALCULATED) 53 mL/min/; GLUCOSE 135 mg/dL (70-99); MAGNESIUM 1.4 mg/dl (1.3-2.7); POTASSIUM 3.8 MEQ/L (3.7-5.4); SODIUM 129 MEQ/L (136-147); UREA NITROGEN (BUN) 33 mg/dL (9-23)
[2017-12-04 23:13] LABS: BASOPHIL (%) 0.4 % (0-1); EOSINOPHIL (%) 0.6 % (0-5); EOSINOPHIL COUNT 0.1 K/uL (0-0.3); HEMATOCRIT 26.2 % (36.0-46.0); IMMATURE GRANULOCYTE (%) 0.6 % (0.0-0.7); LYMPHOCYTE (%) 7.5 % (15-42); LYMPHOCYTE COUNT 0.6 K/uL (1.0-2.8); MCH 30.4 PG (29.0-34.0); MCHC 35.9 G/DL (30.0-36.0); MCV 84.8 FL (83-99); MONOCYTE COUNT 1.1 K/uL (0-0.8); NEUTROPHIL (%) 76.9 % (45-76); NEUTROPHIL COUNT 6.2 K/uL (1.8-6.4); PLATELET COUNT 221 K/uL (156-360); RBC DIS.WIDTH-CV 12.9 % (11.8-14.6); RBC DIS.WIDTH-SD 38.7 % (39-53); WHITE BLOOD COUNT 8.1 K/uL (4.1-10.2)
[2017-12-04 23:32] LABS: CHLORIDE 103 mEq/L (99-109); POTASSIUM 4.2 mEq/L (3.7-5.4); SODIUM 131 mEq/L (136-147)
[2017-12-04 23:32] LABS: HEMOGLOBIN 9.4 G/DL (11.9-15.5); RED BLOOD COUNT 3.09 M/uL (3.80-5.20)
[2017-12-04 23:34] LABS: GLUCOSE 103 mg/dL (70-99)
[2017-12-04 23:37] LABS: PHOSPHORUS 4.3 mg/dL (2.5-4.9)
[2017-12-04 23:38] LABS: CREATININE 1.1 mg/dL (0.6-1.3); GFR ESTIMATE (CALCULATED) 53 mL/min/
[2017-12-04 23:39] LABS: UREA NITROGEN (BUN) 34 mg/dL (9-23)
[2017-12-04 23:40] LABS: MAGNESIUM 1.6 mg/dL (1.3-2.7)
[2017-12-05] VITALS (10 sets, daily range): BP systolic 130–174; BP diastolic 57–99
[2017-12-05 06:08] LABS: CHLORIDE 102 MEQ/L (99-109); GFR ESTIMATE (CALCULATED) > 59 mL/min/; GLUCOSE 112 mg/dL (70-99); MAGNESIUM 1.5 mg/dl (1.3-2.7); POTASSIUM 4.2 MEQ/L (3.7-5.4); SODIUM 131 MEQ/L (136-147); UREA NITROGEN (BUN) 36 mg/dL (9-23)
[2017-12-05 08:51] LABS: CHLORIDE 103 MEQ/L (99-109); CREATININE 0.9 MG/DL (0.6-1.3); GFR ESTIMATE (CALCULATED) > 59 mL/min/; GLUCOSE 107 mg/dL (70-99); POTASSIUM 4.1 MEQ/L (3.7-5.4); SODIUM 134 MEQ/L (136-147); UREA NITROGEN (BUN) 38 mg/dL (9-23)
[2017-12-05 11:38] LABS: APPEARANCE SL.HAZY ((CLEAR)); BILIRUBIN NEGATIVE; BLOOD SMALL; COLOR YELLOW ((YELLOW)); GLUCOSE (STRIP) NEGATIVE; KETONES NEGATIVE; LEUKOCYTES NEGATIVE; NITRITE NEGATIVE; PROTEIN (STRIP) 30; SPECIFIC GRAVITY 1.024 (1.000-1.030); UROBILINOGEN 0.2 MG/DL (0.2-1.0)
[2017-12-05 11:50] LABS: BACTERIA RARE /HPF; CALCIUM OXALATE CRYSTALS 3+ /HPF; EPITHELIAL CELLS NONE SEEN /HPF; HYALINE CASTS 0-5 /LPF; MUCUS 2+ /LPF; RED BLOOD CELLS 20-30 /HPF (0-5); WHITE BLOOD CELLS 0-5 /HPF (0-5)
[2017-12-05 12:08] LABS: UR CREATININE CONCENTRATION 143.1 MG/DL
[2017-12-05 13:25] LABS: CHLORIDE 101 MEQ/L (99-109); CREATININE 0.9 MG/DL (0.6-1.3); GFR ESTIMATE (CALCULATED) > 59 mL/min/; GLUCOSE 118 mg/dL (70-99); SODIUM 134 MEQ/L (136-147); UREA NITROGEN (BUN) 33 mg/dL (9-23)
[2017-12-05 18:50] LABS: BASE EXCESS 1.3 mEq/L (-3 to +3); BICARBONATE 24.6 mEq/L (22-26); CARBOXY HGB 1.2 % (0-5); COMMENTS - BLOOD GASES A+C+; DEVICE NC; O2 FLOW 2 L/MIN; PCO2 33 mm Hg (35-45); PO2 106 mm Hg (80-100); SITE LR; pH 7.48 (7.35-7.45)
[2017-12-05 20:59] LABS: BASOPHIL (%) 0.1 % (0-1); EOSINOPHIL (%) 0.2 % (0-5); HEMATOCRIT 26.4 % (36.0-46.0); HEMOGLOBIN 9.2 G/DL (11.9-15.5); IMMATURE GRANULOCYTE (%) 0.2 % (0.0-0.7); LYMPHOCYTE (%) 6.6 % (15-42); LYMPHOCYTE COUNT 0.6 K/uL (1.0-2.8); MCH 30.3 PG (29.0-34.0); MCHC 34.8 G/DL (30.0-36.0); MCV 86.8 FL (83-99); MONOCYTE (%) 12.2 % (3-12); MONOCYTE COUNT 1.1 K/uL (0-0.8); NEUTROPHIL (%) 80.7 % (45-76); NEUTROPHIL COUNT 7.3 K/uL (1.8-6.4); PLATELET COUNT 215 K/uL (156-360); RED BLOOD COUNT 3.04 M/uL (3.80-5.20); WHITE BLOOD COUNT 9.1 K/uL (4.1-10.2)
[2017-12-05 21:27] LABS: CHLORIDE 102 mEq/L (99-109); POTASSIUM 3.6 mEq/L (3.7-5.4); SODIUM 135 mEq/L (136-147)
[2017-12-05 21:29] LABS: GLUCOSE 102 mg/dL (70-99)
[2017-12-05 21:33] LABS: CREATININE 0.9 mg/dL (0.6-1.3); GFR ESTIMATE (CALCULATED) > 59 mL/min/
[2017-12-05 21:34] LABS: UREA NITROGEN (BUN) 27 mg/dL (9-23)
[2017-12-06] VITALS (10 sets, daily range): BP systolic 137–186; BP diastolic 75–124
[2017-12-06 06:19] LABS: CHLORIDE 100 MEQ/L (99-109); CREATININE 0.9 MG/DL (0.6-1.3); GFR ESTIMATE (CALCULATED) > 59 mL/min/; GLUCOSE 100 mg/dL (70-99); POTASSIUM 3.3 MEQ/L (3.7-5.4); SODIUM 139 MEQ/L (136-147); UREA NITROGEN (BUN) 18 mg/dL (9-23)
[2017-12-06 06:28] LABS: MAGNESIUM 1.2 mg/dl (1.3-2.7)
[2017-12-07 00:41] VITALS: BP 138/73
[2017-12-07 03:40] VITALS: BP 153/73
[2017-12-07 05:07] LABS: CHLORIDE 102 mEq/L (99-109); POTASSIUM 3.8 mEq/L (3.7-5.4); SODIUM 138 mEq/L (136-147)
[2017-12-07 05:08] LABS: MAGNESIUM 1.6 mg/dL (1.3-2.7)
[2017-12-07 05:09] LABS: GLUCOSE 127 mg/dL (70-99)
[2017-12-07 05:13] LABS: CREATININE 1.1 mg/dL (0.6-1.3); GFR ESTIMATE (CALCULATED) 53 mL/min/
[2017-12-07 05:14] LABS: UREA NITROGEN (BUN) 15 mg/dL (9-23)
[2017-12-07 07:27] VITALS: BP 187/85
[2017-12-07 12:00] VITALS: BP 127/75; BP 1274/75
[2017-12-07 15:45] VITALS: BP 121/80
[2017-12-07 20:07] VITALS: BP 164/81
[2017-12-08 00:06] VITALS: BP 127/71
[2017-12-08 03:15] VITALS: BP 130/72
[2017-12-08 08:14] VITALS: BP 136/73
[2017-12-08 12:58] LABS: CHLORIDE 102 MEQ/L (99-109); GFR ESTIMATE (CALCULATED) > 59 mL/min/; GLUCOSE 97 mg/dL (70-99); MAGNESIUM 1.3 mg/dl (1.3-2.7); PHOSPHORUS 3.6 mg/dL (2.5-4.9); POTASSIUM 4.2 MEQ/L (3.7-5.4); SODIUM 137 MEQ/L (136-147); UREA NITROGEN (BUN) 18 mg/dL (9-23)
[2017-12-08 15:31] VITALS: BP 131/86
[2017-12-08 23:39] VITALS: BP 128/60
[2017-12-09 07:16] VITALS: BP 136/63
[2017-12-09] MEDS ORDERED: LABETALOL HCL200 MG PO (09:50)
[2017-12-09] MEDS ORDERED: SEROQUEL12.5 MG PO (09:50)
[2017-12-09 10:11] LABS: BASOPHIL (%) 0.8 % (0-1); BASOPHIL COUNT 0.1 K/uL (0-0.1); EOSINOPHIL (%) 2.9 % (0-5); EOSINOPHIL COUNT 0.2 K/uL (0-0.3); HEMATOCRIT 28.3 % (36.0-46.0); HEMOGLOBIN 9.6 G/DL (11.9-15.5); IMMATURE GRANULOCYTE (%) 0.2 % (0.0-0.7); LYMPHOCYTE (%) 10.4 % (15-42); LYMPHOCYTE COUNT 0.7 K/uL (1.0-2.8); MCH 30.5 PG (29.0-34.0); MCHC 33.9 G/DL (30.0-36.0); MCV 89.8 FL (83-99); MONOCYTE (%) 10.4 % (3-12); MONOCYTE COUNT 0.7 K/uL (0-0.8); NEUTROPHIL (%) 75.3 % (45-76); RBC DIS.WIDTH-SD 42.6 % (39-53); RED BLOOD COUNT 3.15 M/uL (3.80-5.20); WHITE BLOOD COUNT 6.6 K/uL (4.1-10.2)
[2017-12-09 10:14] LABS: PLATELET COUNT 290 K/uL (156-360)
== END 2017-12-09 16:26 | disposition home or self-care (01) | DRG 208 ==
LOC: EDBD 22:00 → EME 22:00 → 4WEST 12-03 01:59 → EDOF 12-03 01:59 → ENRESERV 12-03 02:03 → 4WEST 12-03 02:51 → ENRESERV 12-06 17:03 → 3EAST 12-07 00:07
PROVIDERS: Emergency Medicine; Internal Medicine; Internal Medicine Critical Care Medicine; Obstetrics & Gynecology
PROC: 5A1945Z Respiratory Ventilation, 24-96 Consecutive Hours (ICD-10-PCS; principal; 2017-12-03)
PROC: 0BH17EZ Insertion of Endotracheal Airway into Trachea, Via Natural or Artificial Opening (ICD-10-PCS; principal; 2017-12-03)
DX: J96.01 Acute respiratory failure with hypoxia (principal); E22.2 Syndrome of inappropriate secretion of antidiuretic hormone; E87.6 Hypokalemia; E83.42 Hypomagnesemia; E86.0 Dehydration; K21.9 Gastro-esophageal reflux disease without esophagitis; M19.90 Unspecified osteoarthritis, unspecified site; G93.40 Encephalopathy, unspecified; I16.1 Hypertensive emergency; N18.2 Chronic kidney disease, stage 2 (mild); I12.9 Hypertensive chronic kidney disease with stage 1 through stage 4 chronic kidney disease, or unspecified chronic kidney disease; J39.2 Other diseases of pharynx; C09.9 Malignant neoplasm of tonsil, unspecified; G93.6 Cerebral edema; I25.2 Old myocardial infarction; N17.9 Acute kidney failure, unspecified; T50.2X5A Adverse effect of carbonic-anhydrase inhibitors, benzothiadiazides and other diuretics, initial encounter; T45.1X5A Adverse effect of antineoplastic and immunosuppressive drugs, initial encounter; I27.20 Pulmonary hypertension, unspecified; D64.9 Anemia, unspecified; F17.210 Nicotine dependence, cigarettes, uncomplicated; F41.9 Anxiety disorder, unspecified
CPT/HCPCS: 36600; 70450; 70491; 70553; 71045; 76770; 80048; 80048 91; 80053; 80076; 80400; 81003; 82533 91; 82550; 82553; 82570; 82803; 83605; 83690; 83735; 83880; 83930; 83935; 84100; 84156; 84300; 84443; 84484; 85025; 85610; 85730; 87040; 87070; 87086; 87205; 87449; 87502; 87641; 89190; 92610 GN; 93005; 93306; 94002; 94003; 94799; 95819; 96361; 96365; 96366; 97530 GP; 99281; 99285; J0696; J0834; J1100; J1630; J1650; J1885; J2060; J2250; J2405; J2597; J2704; J3370; J3475; J3480; J7030; J7050; S0028